=== PATIENT | male | born 1970 | race Hispanic/Latino ===

== ENCOUNTER 2020-07-07 10:33 | Emergency (ER) | payer MEDICARE ==
[2020-07-07 10:39] VITALS: BP 132/86
--- NOTE | 2020-07-07 11:50 | Emergency Department Report ---
ED Chest Pain [facility] - General Chief Complaint: Chest Pain Stated Complaint: CHEST PAIN Time Seen by Provider: 07/07/20 11:27 Source: patient Mode of arrival: Ambulatory Limitations: No Limitations - History of Present Illness Initial Comments: 49-year-old male presents to the emergency room stating that he is having chest pain x10 years and came here 12 hours ago but decided to leave and go to the store. Patient states that what makes his chest pain worse is cigarettes and cigars what makes it better is diet Coke and coffee. Patient states that the pain is constant and states that it throbs. Patient admits to a past medical history of schizophrenia bipolar migraines drug abuse alcohol abuse and problem with his left eye. Patient states his surgery was jaw surgery. Current medication he takes his Depakote for sleep. MD Complaint: chest pain Onset/Timin -: hour(s) Severity scale (0 -10): 3 - Related Data Allergies Allergy/AdvReac Type Severity Reaction Status Date / Time Penicillins Allergy Rash Verified 07/07/20 05:10 ivp Allergy Hives Uncoded 07/07/20 05:10 Heart Score - HEART Score History: Slightly suspicious EKG: Normal Age: 45-65 Risk factors: No known risk factors Troponin: < normal limit HEART Score: 1 ED Review of Systems ROS: Stated complaint: CHEST PAIN Other details as noted in HPI ED Past Medical Hx - Past Medical History Previous Medical History?: Yes Additional medical history: Polysubstance Abuse - Surgical History Past Surgical History?: Yes Additional Surgical History: Broken Jaw - Social History Smoking Status: Current Every Day Smoker Substance Use Type: Alcohol, Cocaine, Marijuana, Methamphetamines ED Physical Exam - General Limitations: No Limitations General appearance: alert, in no apparent distress - Head Head exam: Present: atraumatic, normocephalic - Eye Eye exam: Present: normal appearance - ENT ENT exam: Present: mucous membranes moist - Respiratory Respiratory exam: Present: normal lung sounds bilaterally, chest wall tenderness - Cardiovascular Cardiovascular Exam: Present: regular rate, normal rhythm. Absent: systolic murmur, diastolic murmur, rubs, gallop - GI/Abdominal GI/Abdominal exam: Present: soft, normal bowel sounds. Absent: distended, tenderness - Extremities Exam Extremities exam: Present: normal inspection - Back Exam Back exam: Present: normal inspection, full ROM - Neurological Exam Neurological exam: Present: alert, oriented X3, normal gait - Psychiatric Psychiatric exam: Present: normal affect, normal mood - Skin Skin exam: Present: warm, dry, intact, normal color. Absent: rash ED Course Vital Signs 07/07/20 10:37 Temperature 98.6 F Pulse Rate 96 H Respiratory 18 Rate Blood Pressure 132/86 [Right] O2 Sat by Pulse 100 Oximetry TORIN score - Torin Score Age > 65: (0) No Aspirin use within the Past 7 Days: (0) No 3 or more CAD Risk Factors: (0) No 2 or more Angina events in past 24 hrs: (0) No Known CAD with more than 50% Stenosis: (0) No Elevated Cardiac Markers: (0) No ST Deviation Greater than 0.5mm: (0) No TORIN Score: 0 ED Medical Decision Making - Radiology Data Radiology results: report reviewed Patient: THOMAS KHALIL MR#: [id number] 9 : 1970 Acct:[id number] Age/Sex: 49 / M ADM Date: 07/07/20 Loc: ED Attending Dr: Ordering Physician: CAESAR RUBIN MD Date of Service: 07/07/20 Procedure(s): XR chest 1V ap Accession Number(s): [id number] cc: ED MD SCOTTIE Fluoro Time In Minutes: CHEST 1 VIEW INDICATION: Chest Pain. COMPARISON: None. FINDINGS: Support devices: None. Heart: Within normal limits. Lungs/Pleura: No acute air space or interstitial disease. Additional findings: None. IMPRESSION: No acute abnormality. Signer Name: Terrance Powell MD Signed: 07/07/2020 5:37 AM Workstation Name: [id number] Transcribed By: ES Dictated By: Terrance Powell MD Electronically Authenticated By: Terrance Powell MD Signed Date/Time: 07/07/2037 DD/ TD/TT: - Medical Decision Making 49-year-old male presents to the emergency room stating that he is having chest pain x10 years and came here 12 hours ago but decided to leave and go to the store. Patient states that what makes his chest pain worse is cigarettes and cigars what makes it better is diet Coke and coffee. Patient states that the pain is constant and states that it throbs. Patient admits to a past medical history of schizophrenia bipolar migraines drug abuse alcohol abuse and problem with his left eye. Patient states his surgery was jaw surgery. Current medication he takes his Depakote for sleep. Patient's had 2- troponins negative EKG and chest x-ray is negative. Patient will be referred to cardiology and outpatient rehab. Critical care attestation.: If time is entered above; I have spent that time in minutes in the direct care of this critically ill patient, excluding procedure time. ED Disposition Clinical Impression: Chest pain, Alcohol abuse, Drug abuse, Bipolar I disorder, Schizophrenia Disposition: DC- TO HOME OR SELFCARE Is pt being admited?: No Does the pt Need Aspirin: No Condition: Stable Instructions: Chest Pain (ED), Costochondritis (ED) Additional Instructions: Continue with her Depakote as prescribed. Is important for you to follow-up with your primary care provider as well as mental health. Referrals: PRIMARY CAREMD [Primary Care Provider] - 3-5 Days [facility] [Provider Group] - 3-5 Days [facility] [Outside] - 3-5 Days [facility] [Outside] - 3-5 Days
== END 2020-07-07 12:14 | disposition home or self-care (01) ==
LOC: ED 10:33
DX: R07.89 Other chest pain (principal); F31.9 Bipolar disorder, unspecified; F20.9 Schizophrenia, unspecified; F10.10 Alcohol abuse, uncomplicated; F17.200 Nicotine dependence, unspecified, uncomplicated; F14.10 Cocaine abuse, uncomplicated; F12.10 Cannabis abuse, uncomplicated; F15.10 Other stimulant abuse, uncomplicated; Z98.890 Other specified postprocedural states; Z88.0 Allergy status to penicillin; Z88.8 Allergy status to other drugs, medicaments and biological substances
CPT/HCPCS: 36415; 71045; 80048; 84484; 85025; 93005; 99282

== ENCOUNTER 2020-08-02 10:10 | Emergency (ER) | payer MEDICARE ==
[2020-08-02 16:27] VITALS: BP 132/81
--- NOTE | 2020-08-02 16:48 | Emergency Department Report ---
ED Medical Clearance HPI - General Chief complaint: Medical Clearance Stated complaint: ACHES Time Seen by Provider: 08/02/20 16:34 Source: patient Mode of arrival: Ambulatory - History of Present Illness Initial comments: Patient is a 49-year-old male that presents emergency room with a request for detox. Patient states he wants to go to detox get off barbiturates and alcohol. Patient states he drinks a lot every day. Patient states he abuses other substances like cocaine and methamphetamines. Patient states his last drink was 2 hours ago. Patient denies any physical complaints. Patient denies suicidal and homicidal ideations. Patient complains of depression and anxiety. Patient denies hallucinations. Patient denies chest pain or shortness of breath. Patient denies recent travel. Patient denies recent international travel. Patient denies exposure to the novel coronavirus. Patient denies sick contacts. Patient denies fever and chills. Patient denies cough. Patient denies diarrhea. Patient denies coming in contact with anybody with symptoms of the novel coronavirus. Complaint: medical clearance request (For detox.) -: Sudden Reason for Medical Clearance: intoxication Place: home Alledged Intoxication: Yes Compliant with Home Medications: Yes Traumatic Symptoms: denies traumatic injury Associated Symptoms: denies other symptoms Treatments Prior to Arrival: none Allergies/Adverse reactions: Allergies Allergy/AdvReac Type Severity Reaction Status Date / Time Penicillins Allergy Rash Verified 07/07/20 05:10 ivp Allergy Hives Uncoded 07/07/20 05:10 ED Review of Systems ROS: Stated complaint: ACHES Other details as noted in HPI Constitutional: denies: chills, fever Eyes: denies: eye pain, eye discharge, vision change ENT: denies: ear pain, throat pain Respiratory: denies: cough, shortness of breath, wheezing Cardiovascular: denies: chest pain, palpitations Endocrine: no symptoms reported Gastrointestinal: denies: abdominal pain, nausea, diarrhea Genitourinary: denies: urgency, dysuria Musculoskeletal: denies: back pain, joint swelling, arthralgia Skin: denies: rash, lesions Neurological: denies: headache, weakness, paresthesias Psychiatric: anxiety, depression. denies: auditory hallucinations, visual hallucinations, homicidal thoughts, suicidal thoughts Hematological/Lymphatic: denies: easy bleeding, easy bruising ED Past Medical Hx - Past Medical History Previous Medical History?: Yes Additional medical history: Polysubstance Abuse - Surgical History Past Surgical History?: Yes Additional Surgical History: Broken Jaw - Family History Family history: no significant - Social History Smoking Status: Current Every Day Smoker Substance Use Type: Alcohol, Cocaine, Marijuana, Methamphetamines ED Physical Exam - General Limitations: No Limitations General appearance: alert, in no apparent distress - Head Head exam: Present: atraumatic, normocephalic - Eye Eye exam: Present: normal appearance - ENT ENT exam: Present: mucous membranes moist - Neck Neck exam: Present: normal inspection - Respiratory Respiratory exam: Present: normal lung sounds bilaterally. Absent: respiratory distress - Cardiovascular Cardiovascular Exam: Present: regular rate, normal rhythm. Absent: systolic murmur, diastolic murmur, rubs, gallop - GI/Abdominal GI/Abdominal exam: Present: soft, normal bowel sounds - Rectal Rectal exam: Present: deferred - Extremities Exam Extremities exam: Present: normal inspection - Back Exam Back exam: Present: normal inspection - Neurological Exam Neurological exam: Present: alert, oriented X3 - Psychiatric Psychiatric exam: Present: normal affect, normal mood - Skin Skin exam: Present: warm, dry, intact, normal color. Absent: rash ED Course Vital Signs 08/02/20 08/02/20 16:15 16:26 Temperature 98.3 F Pulse Rate 87 Respiratory 16 16 Rate Blood Pressure 132/81 [Left] O2 Sat by Pulse 98 96 Oximetry - Reevaluation(s) Reevaluation #1: I discussed plan of care with patient. Patient agrees with plan of care. Patient states he would like to go to an inpatient treatment facility. 08/02/20 16:54 Reevaluation #2: I discussed all results and clinical findings with patient. I discussed plan of care with patient. Patient agrees with plan of care. Patient is medically cleared. Mental health pets salesperson will see the patient. 08/02/20 18:17 Reevaluation #3: I discussed all results and clinical findings with patient. I discussed plan of care with patient. Patient agrees with plan of care. Patient is stable for discharge. Patient will be discharged home. Patient given discharge instructions. Patient voiced understanding of discharge instructions. 08/02/20 20:23 - Consultations Consultation #1: Mental health pets salesperson consulted and I discussed the patient's case with the pets salesperson. Mental health to see the patient for possible placement 08/02/20 16:50 Note of assessed the patient and gave the patient outpatient resources. Patient is cleared for discharge. 08/02/20 20:10 ED Medical Decision Making - Lab Data Result diagrams: 08/02/20 16:46 08/02/20 16:46 - Medical Decision Making Patient is a 49-year-old male the presents emergency room for desire detox. Patient had labs done which were essentially unremarkable and a negative alcohol. Patient was evaluated by mental health and the patient did not meet criteria for inpatient rehab. Patient given outpatient resources. Patient is stable for discharge. Patient discharged home from the ER and instructed to go directly to one of the programs that he was given. - Differential Diagnosis Desire detox, alcohol abuse, polysubstance abuse, depression, anxiety ED Disposition Clinical Impression: Desire for detoxification, Polysubstance abuse, Alcohol abuse Disposition: DC-01 TO HOME OR SELFCARE Is pt being admited?: No Does the pt Need Aspirin: No Condition: Undetermined Instructions: At-Risk Alcohol Use (ED), Abuse of Alcohol (ED), Alcohol Withdrawal (ED), Polysubstance Abuse (ED), Medical Clearance for Substance Abuse Treatment (ED) Additional Instructions: Patient to follow-up with primary care in 2 to 3 days. Patient to contact one of the programs below soon as possible. Patient to avoid drugs and alcohol. Patient to take Tylenol or ibuprofen as needed for pain. Patient to return to the ER if condition worsens, changes or new symptoms arise. In case of an emergency, please contact the following numbers: [place] Crisis and Access Line: Number: Crisis Text Line: (Text START) Number: 548248 Suicide Prevention Line: Number: Emergency Number: 911 SUBSTANCE ABUSE PROGRAMS: [facility]: Location: [place], [place] [employer] Address: [address] [place] [address] [facility]: Address: [address] [place] [address] [place] [address] [facility]: Address: [address] [place] [address] [facility]: Address: [address] [place] [address] [facility] Address: [address] [place] [address]. Please contact above numbers to attempt placement into free based program. Medicaid Programs: [facility]: Address: [address] [place] [address] [facility]: Address: [address] [place] [address] Outpatient COMMUNITY Behavioral Health Resources: [facility] ([facility]) [address] [place] [address] / [phone] Friday thru Friday - 8am - 5pm [facility] Address: [address] [place] [address] Friday thru Friday- 7am-2pm [facility] Address: [address] [place] [address] Friday thru Friday: 8:30AM-5PM CRISIS RESOURCES [place] Crisis Line: Suicide Prevention Line: Crisis Text Line: Text START to 125948 Emergency: 911 OUTPATIENT MENTAL HEALTH RESOURCES [facility], [facility] Jessietevin Contreras MD: [address] [place] [address] [place] [address] [facility]: [employer] [address] [place] [address] [place] [address] [phone] [facility]: [facility] Healthcare: [address] [facility] [address] [place] [address] [facility] [id number] [facility]: Dio Oviedo MD: [address] [facility] [address] [facility] [address] [facility]: [address] [place] [phone] [place] CRISIS AND ACCESS LINE: Referrals: PRIMARY CARE, [Primary Care Provider] - 2-3 Days Time of Disposition: 20:24
[2020-08-02 17:00] LABS: Basophils % (Auto) 0.3 % (0.0-1.8); Eosinophils % (Auto) 0.5 % (0.0-4.3); Hematocrit 41.9 % (35.5-45.6); Hemoglobin 14.5 gm/dl (11.8-15.2); Lymphocytes # (Auto) 2.4 K/mm3 (1.2-5.4); Lymphocytes % (Auto) 40.1 % (13.4-35.0); Mean Corpuscular HGB Conc 35 % (32-34); Mean Corpuscular Volume 92 fl (84-94); Monocytes # (Auto) 0.4 K/mm3 (0.0-0.8); Monocytes % (Auto) 6.5 % (0.0-7.3); Platelet Count 458 K/mm3 (140-440); Red Blood Count 4.54 M/mm3 (3.65-5.03); Red Cell Distribution Width 13.4 % (13.2-15.2)
[2020-08-02 17:16] LABS: Blood Urea Nitrogen 5 mg/dL (9-20); Calcium 8.7 mg/dL (8.4-10.2); Hemolysis Index 12
[2020-08-02 17:20] LABS: BUN/Creatinine Ratio 13
[2020-08-02 19:03] LABS: Bacteria,Urine 1+ /HPF (Negative); Bilirubin,Urine NEG (Negative); Blood,Urine NEG (Negative); Color,Urine Yellow (Yellow); Protein,Urine <15 mg/dL mg/dL (Negative); RBC,Urine < 1.0 /HPF (0.0-6.0); Urobilinogen,Urine < 2.0 mg/dL (<2.0)
[2020-08-02 19:04] LABS: Amphetamine Screen,Urine PRESUMPTIVE NEGATIVE; Benzodiazepines Screen,Urine PRESUMPTIVE NEGATIVE; Cannabinoid Screen,Urine PRESUMPTIVE NEGATIVE; Cocaine Screen,Urine PRESUMPTIVE NEGATIVE; Methadone Screen,Urine PRESUMPTIVE NEGATIVE; Opiate Screen,Urine PRESUMPTIVE NEGATIVE
[2020-08-02 19:06] LABS: WBC,Urine < 1.0 /HPF (0.0-6.0)
== END 2020-08-02 21:03 | disposition home or self-care (01) ==
LOC: ED 10:10
DX: F10.231 Alcohol dependence with withdrawal delirium (principal); F17.200 Nicotine dependence, unspecified, uncomplicated; F12.10 Cannabis abuse, uncomplicated; F14.10 Cocaine abuse, uncomplicated; F15.10 Other stimulant abuse, uncomplicated; Z88.0 Allergy status to penicillin; Z88.8 Allergy status to other drugs, medicaments and biological substances
CPT/HCPCS: 36415; 80048; 80307; 80320; 81001; 85025; G0480